=== PATIENT | female | born 1945 | race Caucasian/White ===

== ENCOUNTER 2021-07-08 12:40 | Outpatient (CLI) | payer MEDICARE | END 2021-07-08 12:41 | disposition home or self-care (01) | LOC: CSHMRI 12:40 | PROVIDERS: ATTEND Internal Medicine | DX: M54.50 Low back pain, unspecified (principal); M48.061 Spinal stenosis, lumbar region without neurogenic claudication; M47.816 Spondylosis without myelopathy or radiculopathy, lumbar region; S32.059A Unspecified fracture of fifth lumbar vertebra, initial encounter for closed fracture | CPT/HCPCS: 72148 ==

== ENCOUNTER 2023-12-15 12:56 | Outpatient (CLI) | payer MEDICARE | END 2023-12-15 12:57 | disposition home or self-care (01) | LOC: CSHCT 12:56 | PROVIDERS: ATTEND Neurological Surgery | DX: M89.9 Disorder of bone, unspecified (principal) | CPT/HCPCS: 70450 ==

== ENCOUNTER 2023-12-23 12:39 | Outpatient (CLI) | payer MEDICARE | END 2023-12-23 12:40 | disposition home or self-care (01) | LOC: CSHMAMMO 12:39 | PROVIDERS: ATTEND Internal Medicine | DX: Z12.31 Encounter for screening mammogram for malignant neoplasm of breast (principal) | CPT/HCPCS: 77063; 77067 ==